=== PATIENT | female | born 1975 ===

== ENCOUNTER 2017-05-08 09:50 | Outpatient (CLI) | payer OTHER | END 2017-05-08 11:22 | disposition home or self-care (01) | LOC: MAMO-SONO 09:50 | DX: D24.1 Benign neoplasm of right breast (principal) ==

== ENCOUNTER 2017-11-22 11:18 | Outpatient (CLI) | payer OTHER | END 2017-11-22 16:58 | disposition home or self-care (01) | LOC: SONOGRAMA 11:18 | DX: N60.01 Solitary cyst of right breast (principal) ==

== ENCOUNTER 2018-07-03 10:45 | Outpatient (CLI) | payer OTHER | END 2018-07-03 10:47 | disposition home or self-care (01) | LOC: MAMO-SONO 10:45 | DX: N63.14 Unspecified lump in the right breast, lower inner quadrant (principal); Z12.31 Encounter for screening mammogram for malignant neoplasm of breast ==

== ENCOUNTER 2024-09-14 22:10 | Emergency (ER) | payer OTHER ==
[~2024-09-14] VITALS: Ht 152.4 cm; Wt 78.0 kg
[2024-09-15] MEDS ORDERED: 0.9 % SODIUM CHLORIDE 1,000 ML IV ONE (00:45)
[2024-09-15] MEDS ORDERED: INSULIN REGULAR, HUMAN 1,000 UNIT/10 ML UNITS IV STA (00:46)
[2024-09-15 01:41] LABS: BASO % 0.2 % (0.1-1.2); EOS # 0.01 (0.04-0.54); EOS % 0.1 % (0.7-7.0); HEMATOCRIT 42.5 % (34.1-44.9); HEMOGLOBIN 14.2 g/dL (11.2-15.7); LYMPH # 1.05 (1.18-3.74); LYMPH % 11.1 % (19.3-53.1); MEAN CORPUSCULAR HEMOGLOBIN 25.3 pg (25.6-32.2); MONO # 0.47 (0.24-0.82); NEUT # 7.87 (1.56-6.13); NEUT % 83.4 % (34.0-71.1); PLATELET COUNT 281 K/uL (163-369); RED BLOOD COUNT 5.62 M/uL (3.93-5.22); RED CELL DISTRIBUTION WIDTH 12.7 % (11.6-14.4)
[2024-09-15 02:06] LABS: ALBUMIN 3.9 gm/dL (3.4-5.0); BILIRUBIN TOTAL 0.56 mg/dL (0.3-1.2); CALCIUM 9.7 mg/dL (8.5-10.1); CREATININE SERUM 0.67 mg/dL (0.55-1.02); GFR 93.16; POTASSIUM 4.09 mEq/L (3.5-5.1); TOTAL PROTEIN 7.9 gm/dL (6.4-8.2)
[2024-09-15 02:40] LABS: URINE APPEARANCE Clear; URINE BILIRRUBIN Negative (NEGATIVE); URINE BLOOD Negative; URINE COLOR Yellow; URINE KETONE 15 (NEGATIVE); URINE LEUKOCYTE Negative; URINE NITRATE Negative; URINE PROTEIN Negative (NEGATIVE); URINE UROBILINOGEN 0.2 E.U./dl
[2024-09-15 02:44] LABS: URINE BACTERIA 512.6 uL (0.0-1933); URINE WBC 11.3 uL (0.0-23.2)
[2024-09-15 02:56] LABS: URINE CAST 0.44 uL (0.0-1.40); URINE GLUCOSE 250 MG/DL (NEGATIVE); URINE RBC 0.7 uL (0.0-20.8)
[2024-09-15] MEDS ORDERED: METFORMIN HCL500 M3 PO (03:45)
== END 2024-09-15 04:15 | disposition home or self-care (01) ==
LOC: ER 22:10
PROVIDERS: General Practice
DX: R73.9 Hyperglycemia, unspecified (principal); R42 Dizziness and giddiness